=== PATIENT | male | born 1965 | race Caucasian/White ===

== ENCOUNTER → 2019-03-17 | Outpatient (CLI) | payer BC | LOC: COL.PUL 12:47 | DX: R06.02 Shortness of breath (principal); Z87.891 Personal history of nicotine dependence ==

== ENCOUNTER → 2023-03-06 | Outpatient (CLI) | payer BC | LOC: COL.RAD 09:31 | DX: Z12.2 Encounter for screening for malignant neoplasm of respiratory organs (principal); Z87.891 Personal history of nicotine dependence ==

== ENCOUNTER 2023-10-22 06:25 | Day surgery (SDC) | payer BC ==
[~2023-10-22] VITALS: Ht 185.4 cm; Wt 153.3 kg
[2023-10-22 07:00] VITALS: BP 176/91; PULSE 65; TEMP 97.2
[2023-10-22 07:10] VITALS: BP 176/91; PULSE 65; TEMP 97.2
--- NOTE | 2023-10-22 07:17 | NUR ---
0638-PATIENT ARR[place] [facility] [place] [facility] [place]UL[place], ALERT AND ORIENTED ON ARRIVAL. PATIENT AMBULATED TO ROOM INDEPENDENTLY. PLAN OF CARE AND CONSENTS REVIEWED AND SIGNED, QUESTIONS INVITED. PATIENT CHANGED INTO GOWN INDEPENDENTLY. DENIES PAIN TO ABDOMEN, REPORTS HEADACHE AT THIS TIME. ALLERGIES AND MEDICATION HISTORY REVIEWED, PHYSICAL ASSESSMENT NOTES ABRASION TO RIGHT HOLLINS/KNEE. VITAL SIGNS TAKEN, TACHYPNEA AND HYPERTENSION NOTED, TO CONTINUE TO MONITOR. 20G IV STARTED TO LFA, LR STARTED TKO. ANESTHESIA AND DR. PATINO AT BEDSIDE, PLAN OF CARE DISCUSSED, QUESTIONS INVITED. PATIENT TAKEN TO PACU FOR PRE-OP BLOCK.
[2023-10-22] MEDS ORDERED: ASPIRIN E.C. 8181 MG PO (07:26)
[2023-10-22] MEDS ORDERED: FORTAMET500 M1 PO (07:26)
[2023-10-22] MEDS ORDERED: PAXLOVID 150-11 EACH PO (07:26)
[2023-10-22] MEDS ORDERED: TRELEGY ELLIPT1 EACH IH (07:26)
[2023-10-22] MEDS ORDERED: BREZTRI AEROS10.7 GM IH (07:27)
[2023-10-22] MEDS ORDERED: PROAIR RES117 MCG/Ac IH (07:28)
[2023-10-22] MEDS ORDERED: ZYRTEC 10MG10 MG PO (07:28)
[2023-10-22] MEDS ORDERED: SINGULAIR 110 MG/TAB PO (07:28)
[2023-10-22] MEDS ORDERED: HYZAAR 25 MG-101 TAB PO (07:29)
--- NOTE | 2023-10-22 08:28 | NUR ---
0735-PATIENT ARRIVED TO [facility] [place]BULATION, GAIT STEADY, PT ALERT AND ORIENTED. CONSENTS REVIEWED AND SIGNED, PLAN OF CARE, ALLERGIES AND MEDICATIONS REVIEWED. PATIENT CHANGED INTO GOWN INDEPENDENTLY. VITAL SIGNS TAKEN, VSS. RT AT BEDSIDE FOR EKG. LAB AT BEDSIDE FOR LAB, 18 G IV STARTED TO LEFT HAND AND LABS DRAWN FROM IV START. PATIENT'S SPOUSE BROUGHT TO BEDSIDE. CALL LIGHT WITHIN REACH, BED IN LOWEST POSITION. WARM BLANKET PROVIDED. PATIENT AWAITING BLOCK AND PROCEDURE.
[2023-10-22] MEDS ORDERED: NORCO 325 MG-51 TAB PO (10:18)
[2023-10-22 11:55] VITALS: BP 173/86; PULSE 61; TEMP 97.3
[2023-10-22 12:10] VITALS: BP 140/74; PULSE 61
[2023-10-22 12:25] VITALS: BP 155/88; PULSE 69
[2023-10-22 13:00] VITALS: BP 142/72; PULSE 67
--- NOTE | 2023-10-22 13:51 | NUR ---
1155-REPORT OBTAINED FROM WHITLEY LYNCH. PATIENT BROUGHT TO [place] [facility] VIA CART ON 2L/MIN NC, PATIENT ALERT AND ORIENTED ON ARRIVAL. VITAL SIGNS TAKEN, HYPERTENSION PERSISTS PER PRE-OP. UPDATE GIVEN TO PATIENT AND SPOUSE AT BEDSIDE. INCISION SITES CHECKED, DRESSINGS CDI. ENCOURAGED PT TO COUGH AND DEEP BREATHE. CALL LIGHT WITHIN REACH, BED IN LOWEST POSITION. REPORTS PAIN 5/10 TO ABDOMEN, PAIN LEVEL TOLERABLE. 1210-VSS. PATIENT GIVEN PO INTAKE, DENIES FURTHER NEEDS AT THIS TIME 1235-PT TOLERATING PO INTAKE. PRN PAIN MEDICATION GIVEN, PT RATING PAIN 5/10 WITH REST 1310-DISCHARGE INSTRUCTIONS REVIEWED WITH PT AND SPOUSE, QUESTIONS INVITED. IV CATHETER DISCONTINUED, TIP INTACT. PRESSURE HELD AND BANDAGE APPLIED. PT ASSISTED WITH DRESSING FROM SPOUSE. 1335-PATIENT DISCHARGED HOME TO [facility] VIA WHEELCHAIR, ACCOMPANIED BY SPOUSE. ALL BELONGINGS AND D/C PAPERWORK SENT WITH PT.
== END 2023-10-22 13:35 | disposition home or self-care (01) ==
LOC: SDCO 06:25
DX: K43.6 Other and unspecified ventral hernia with obstruction, without gangrene (principal); K42.9 Umbilical hernia without obstruction or gangrene; G47.33 Obstructive sleep apnea (adult) (pediatric); E66.01 Morbid (severe) obesity due to excess calories; I10 Essential (primary) hypertension; J44.9 Chronic obstructive pulmonary disease, unspecified; Z87.891 Personal history of nicotine dependence; Z68.41 Body mass index [BMI] 40.0-44.9, adult
CPT/HCPCS: C1781; J0330; J0665; J0690; J1100; J1170; J2250; J2405; J2704; J3010; J7120

== ENCOUNTER → 2024-02-10 | Outpatient (CLI) | payer BC ==
[~2024-02-10] VITALS: Ht 185.4 cm; Wt 156.2 kg
[~2024-02-10] MED LIST: ASPIRIN E.C. 8181 MG PO; BREZTRI AEROS10.7 GM IH; CRESTOR5 MG PO; FORTAMET500 M1 PO; HYZAAR 25 MG-101 TAB PO; NORCO 325 MG-51 TAB PO; NORVASC 5MG5 MG/TAB PO; PAXLOVID 150-11 EACH PO; PROAIR RES117 MCG/Ac IH; Regadenoson 0.08 MG/ML 5 ML SYRINGE IV SCH; SINGULAIR 110 MG/TAB PO; TRELEGY ELLIPT1 EACH IH; ZYRTEC 10MG10 MG PO
[2024-02-10 09:20] VITALS: BP 149/91; PULSE 61; TEMP 97.3
[2024-02-10 10:41] VITALS: BP 136/84; PULSE 59
[2024-02-10 10:44] VITALS: BP 130/75; PULSE 63
[2024-02-10 10:45] VITALS: BP 151/80; PULSE 69
[2024-02-10 10:46] VITALS: BP 143/80; PULSE 69
== END ==
LOC: COL.RAD 08:39
DX: R06.00 Dyspnea, unspecified (principal)
CPT/HCPCS: A9500-JZ; J2785